=== PATIENT | male | born 1990 | race Caucasian/White ===

== ENCOUNTER 2017-08-09 13:48 | Emergency (ER) | payer MEDICAID | END 2017-08-09 15:12 | disposition home or self-care (01) | LOC: E/R 13:48 | DX: Z02.89 Encounter for other administrative examinations (principal); J45.909 Unspecified asthma, uncomplicated; R40.2412 Glasgow coma scale score 13-15, at arrival to emergency department | CPT/HCPCS: 99282; Z7502 ==

== ENCOUNTER 2017-08-15 20:01 | Emergency (ER) | payer MEDICAID ==
[2017-08-15] MEDS: IBUPROFEN 600 MG TAB PO (22:25)
== END 2017-08-16 01:50 | disposition home or self-care (01) ==
LOC: FTE 08-16 01:50
DX: S93.401A Sprain of unspecified ligament of right ankle, initial encounter (principal); J45.909 Unspecified asthma, uncomplicated; W18.39XA Other fall on same level, initial encounter; Y92.9 Unspecified place or not applicable
CPT/HCPCS: 73610; 73610-RT; 99283-25

== ENCOUNTER 2017-09-11 13:17 | Emergency (ER) | payer MEDICAID | END 2017-09-11 16:03 | disposition home or self-care (01) | LOC: FTE 13:17 | DX: S99.911D Unspecified injury of right ankle, subsequent encounter (principal); X58.XXXA Exposure to other specified factors, initial encounter | CPT/HCPCS: 73610; 73610-RT; 99283-25 ==